=== PATIENT | female | born 1980 | race Asian ===

== ENCOUNTER 2018-05-18 14:28 | Outpatient (CLI) | payer OTHER ==
[~2018-05-18 14:28] MED LIST: FERR325E14 PO; PREN-385 PO
== END 2018-05-18 19:53 | disposition home or self-care (01) ==
LOC: MUS 14:28
DX: O20.0 Threatened abortion (principal); O09.511 Supervision of elderly primigravida, first trimester; Z3A.12 12 weeks gestation of pregnancy
CPT/HCPCS: 76801; Q0092